=== PATIENT | female | born 1935 | race Caucasian/White ===

== ENCOUNTER → 2017-02-09 | Outpatient (CLI) | payer MEDICARE ==
--- NOTE | 2017-02-09 11:24 | REPMRS ---
Patient History The patient states she had a clinical breast exam in 03/2016. Patient is postmenopausal, has history of endometrial cancer at age 66, has history of colorectal cancer at age 55, and had first child at age 30. No known family history of cancer. Digital Woman Screen Mammo: February 09, 2017 - Exam #: [id number] Bilateral CC and MLO view(s) were taken. Technologist: Binta Winston, Technologist Prior study comparison: January 27, 2016, digital woman screen mammo performed at [facility] [employer] to [facility]. January 21, 2015, digital woman screen mammo performed at [facility] [employer] to [facility]. FINDINGS: There are scattered fibroglandular densities. There has been no change in the appearance of the mammogram from the prior studies. There is a mild amount of residual fibroglandular tissue which is fairly symmetric. There is no interval development of dominant mass, architectural distortion, or clustered microcalcification suggestive of malignancy. ASSESSMENT: BI-RADS/ACR category 1 mammogram. Negative. Recommendation Routine screening mammogram in 1 year (for women over age 40). This mammogram was interpreted with the aid of an FDA-approved computer-aided dectection system. Electronically Signed By: Kieran Ramirez MD 02/09/17 [id number]
--- NOTE | 2017-02-10 10:30 | DEXA ---
AP SPINE L1 - L4 1.140 -0.3 1.5 LT FEMUR TOTAL 0.837 -1.4 0.8 RT FEMUR TOTAL 0.881 -1.0 1.1 TOTAL BODY TOTAL OTHER DUAL FEMUR FRAX* ASSESSMENT Risk factors: Not performed. 10 year probability of fracture Major osteoporotic fracture % Hip fracture % COMMENTS: Normal bone densitometry of the spine and hips. The increased density of the spine does represent a significant change. The decreased density of the left hip does represent a significant change. The increased density of the right hip does represent a significant change. The density of the spine has increased 2.2% since the initial exam on 1999. The spine density has increased 3.1% since the most recent exam on 03/25/2008. The density of the left hip has decreased 10.4% since the initial exam on 1999. The density of the left hip has decreased 2.3% since the most recent exam on . The density of the right hip has increased 1.8% since the initial exam on 1999. The density of the right hip has increased 7.8% since the most recent exam on . FOLLOW-UP: Recommendation for the next bone density exam: 5 years. RAMIREZ
== END ==
LOC: M WHC 09:46
PROVIDERS: ATTEND Family Medicine
DX: Z12.31 Encounter for screening mammogram for malignant neoplasm of breast (principal); M81.0 Age-related osteoporosis without current pathological fracture; Z85.038 Personal history of other malignant neoplasm of large intestine; Z85.42 Personal history of malignant neoplasm of other parts of uterus
CPT/HCPCS: 77080; G0202

== ENCOUNTER 2019-02-22 00:44 | Inpatient (IN) | payer MEDICARE ==
[~2019-02-22] VITALS: Ht 162.6 cm; Wt 57.4 kg
[2019-02-22 03:10] VITALS: BP 122/63
--- NOTE | 2019-02-22 03:13 | HPEPDOC ---
[facility] Medical History & Physical Date of Admission Feb 22, 2019 Date of Service: Feb 22, 2019 Primary Care Physician: NAHID BRITO M.D. Attending Physician: DANIELLA ÁLVAREZ MD History and Physical PRIMARY CARE PROVIDER: Nahid Brito ATTENDING: Dr. Daniella Álvarez CHIEF COMPLAINT: abdominal pain HISTORY OF PRESENT ILLNESS: Patient is a 83 year old female transferred from [facility] for small bowel obstruction. She states that around 1400 on 02/21, she began to experience constant mid-epigastric and left upper quadrant abdominal pain with nausea and bilious non-bloody emesis. She has a history of small bowel obstruction 4 years ago in [place] where her symptoms were exactly the same so she presented to the emergency department at [facility]. While she was there a CT scan of her abdomen showed "findings compatible with small bowel obstruction with bowel loops measuring up to 3.2 cm and a transition point in the right lower quadrant associated with a twisting/radiating mesentery compatible with a closedloop small bowel bowel obstruction". She also was found to have a white count of 13.8. She was given IV Zofran, fluids, ibuprofen, and was started on antibiotics. They called Dr. Álvarez for transfer to [facility] for possible surgical intervention. Presently, the patient's abdominal pain is well- controlled with a single 800 mg ibuprofen and she is not having any nausea. Her last bowel movement was at 0830 on 02/21, her last meal was about noon on 02/21, and she states she was able to pass flatus around 0430 shortly after she arrived at [facility]. PAST MEDICAL HISTORY: Hypothyroidism Irregular heart beat History of colorectal cancer treated with radiation and partial colon resection (1990) History of uterine cancer treated with hysterectomy (2001) History of small bowel obstruction (2014) PAST SURGICAL HISTORY: partial colon resection (1990) Hysterectomy SOCIAL HISTORY: denies alcohol use, denies use of tobacco products, denies any marijuana, heroin, cocaine, or PCP use. No sick contacts. No recent travel/travel history. FAMILY HISTORY: Noncontributory ALLERGIES: Please see below. REVIEW OF SYSTEMS: GENERAL: Denies fevers, chills, recent unexpected weight change, night sweats, hemoptysis HEENT: Denies headache, dizziness, vision changes, hearing loss, sore throat CARDIOVASCULAR: Denies chest pain, palpitations, orthopnea RESPIRATORY: Denies shortness of breath, wheezing, cough GASTROINTESTINAL: denies constipation, diarrhea, bloody stool. Admits to nausea, vomiting, abdominal pain GENITOURINARY: Denies dysuria,urinary urgency, hematuria. MUSCULOSKELETAL: Denies muscle/joint pain, weakness, stiffness NEUROLOGICAL: Denies any numbness/tingling, focal weakness, or syncope HOME MEDICATIONS: Please see below. PHYSICAL EXAMINATION: Vitals: (see below) General: No acute distress, laying comfortably in bed. HEENT: Normocephalic, atraumatic. EOMI. No scleral icterus. Moist mucous membranes. No pharyngeal erythema or uvular deviation. Neck: No JVD, lymphadenopathy, or thyromegaly. Cardiac: RRR, Normal S1 and S2, No murmurs, gallops, rubs. Pulm: Clear to auscultation b/l. No wheezing, rhonchi Abd: Bowel Sounds present. Abdomen is soft, non-tender, non-distended. No gua rding, rebound tenderness, or rigidity. No hepatosplenomegaly. No masses or eccymosis. Ext: No edema or cyanosis Neuro: A&Ox3 CN 3-12 grossly intact. LABORATORY DATA: See below. IMAGING: CT abdomen and pelvis from [facility] Impression: 1. Findings compatible with small bowel obstruction with bowel loops measuring up to 3.2 cm. Transition point in the right lower quadrant associated with a twisting/radiating mesentery compatible with a closedloop small bowel obstruction. 2. No evidence of pneumatosis intestinalis, portal venous gas or free intraperitoneal air. 3. Trace ascites MICROBIOLOGY: Please see below. ASSESSMENT/PLAN: #. Small bowel obstruction - Patient is presently asymptomatic and pain is well controlled. Will continue to keep patient NPO and run gentle IV fluids. Patient has IV Toradol and Zofran for pain and nausea control. - Consulting general surgery for assessment of possible surgical intervention. #. Hypothyroidism - Continue home levothyroxine #. Irregular heartbeat - Continue metoprolol -DVT prophy: Teds and sequentials, holding heparin in case of surgery. Home Medications Scheduled Aspirin (Aspirin EC) 81 Mg Tablet.dr, 81 MG PO DAILY Levothyroxine Sodium (Synthroid) 88 Mcg Tablet, 88 MCG PO DAILY Metoprolol Succinate (Metoprolol Succinate) 25 Mg Tab.er.24h, 25 MG PO QPM TAKES AT DINNERTIME Multivitamins (Thera M Plus Tablet) 1 Each Tablet, 1 TAB PO DAILY Allergies Coded Allergies: No Known Allergies (Verified Allergy, Unknown, 02/22/19) A-FIB/CHADSVASC A-FIB History Current/History of A-Fib/PAF?: No GME ATTESTATION GME ATTESTATION My faculty preceptor for this patient encounter was physically present during the encounter and was fully available. All aspects of the patient interview, examination, medical decision making process, and medical care plan development were reviewed and approved by the faculty preceptor. The faculty preceptor is aware and concurs with the plan as stated in the body of this note and will attest to such by his/her cosignature. ATTENDING NOTE I personally performed a history and physical examination of the patient and discussed the management with the resident. I reviewed the resident's note and agree with the documented findings and plan of care. SIOMARA BEE DO Feb 22, 2019 02:49 DANIELLA ÁLVAREZ MD Feb 22, 2019 23:34
[2019-02-22] MEDS ORDERED: METO1TAB32 PO (03:55)
[2019-02-22] MEDS ORDERED: SYNT88TA2 PO (03:55)
[2019-02-22] MEDS ORDERED: VITMTA PO (03:55)
[2019-02-22] MEDS ORDERED: ASPI-161 PO (03:55)
[2019-02-22] MEDS ORDERED: KETOROLAC 30 MG/ML VIAL (J1885) IV PRN (04:00)
[2019-02-22] MEDS: NS 1,000 ML IV SCH ×2 (05:05→14:25)
[2019-02-22 06:00] VITALS: BP 113/58
[2019-02-22 06:14] LABS: HEMATOCRIT 39.8 % (36.0-47.0); HEMOGLOBIN 13.3 g/dl (12.0-15.5); MEAN CORPUSCULAR HEMOGLOBIN 31.1 pg (27.0-33.0); MEAN CORPUSCULAR HGB CONC 33.4 g/dl (32.0-36.5); MEAN CORPUSCULAR VOLUME 93.2 fl (80.0-96.0); PLATELET COUNT, AUTOMATED 193 10^3/uL (150-450); RED BLOOD COUNT 4.27 10^6/uL (4.00-5.40)
[2019-02-22] MEDS: LEVOTHYROXINE 88MCG TABLET (0.088 MG) PO SCH (06:35)
[2019-02-22] MEDS: ONDANSETRON 4MG/2ML VIAL (J2405) IV SCH ×3 (06:40→18:03)
[2019-02-22 06:41] LABS: BLOOD UREA NITROGEN 14 MG/DL (7-18); CALCIUM LEVEL 8.2 MG/DL (8.8-10.2); CARBON DIOXIDE LEVEL 27 MEQ/L (21-32); CHLORIDE LEVEL 109 MEQ/L (98-107); CREATININE FOR GFR 0.55 MG/DL (0.55-1.30); GLOMERULAR FILTRATION RATE > 60.0 (>32); GLUCOSE, FASTING 96 MG/DL (70-100); POTASSIUM SERUM 3.8 MEQ/L (3.5-5.1); SODIUM LEVEL 142 MEQ/L (136-145)
--- NOTE | 2019-02-22 12:01 | CR ---
DATE OF CONSULTATION: 02/22/2019 The patient is an 83-year-old female who developed abdominal pain, nausea and vomiting yesterday with abdominal distension. She has had "slow bowels" as described by Dr. Mcarthur in the past and had seen him a couple of weeks ago concerning some lower gastrointestinal (GI) issues. Essentially presents with acute onset of some abdominal discomfort, distension and nausea, vomiting. CT scan revealed a partial bowel obstruction versus ileus and was transferred here for additional treatment. She has been passing gas and feeling less nauseated since her transfer and has not had any bowel movements but had no fevers or chills and overall is hungry. PAST MEDICAL HISTORY: Her past medical history is significant for history of uterine cancer, status post hysterectomy, history of sigmoid colon resection. Medications include multivitamins and aspirin. She does have a history of hypothyroidism. History of colon cancer and history of gynecological ([employer]) cancer. PHYSICAL EXAMINATION: Physical exam reveals an 83-year-old female who looks stated age. HEENT is unremarkable. NECK: Supple without adenopathy. LUNGS: Clear to auscultation without crackles, wheezes or rhonchi. HEART: Heart is regular rhythm without murmur. ABDOMEN: Abdomen is softly distended but actually much better than it was earlier as evident on her CT scan and overall she states that her belly is "back to normal" at this time. EXTREMITIES: Warm, well-perfused. IMPRESSION AND PLAN: The patient has evidence of either an ileus or partial obstruction that has resolved and will start her on a clear liquid diet. If she does well with this time, I would recommend progressing her diet as tolerated. I anticipate if she continues to do well, she could be discharged to home tomorrow. I would recommend however that she follow up with Dr. Mcarthur in a few weeks for possible repeat endoscopy/colonoscopy mostly because, when I look at the CT scan, that seems as though the colon distal to the anastomosis is decompressed/may be a very narrow where as proximal, at the level of the anastomosis is where the large bowel seems quite distended and air-filled. This could be an issue where she might have a small anastomotic stricture that may need balloon dilatation. I will defer that assessment/workup to him.
[2019-02-22 14:00] VITALS: BP 112/68
[2019-02-22] MEDS ORDERED: METOPROLOL SUCC *XL* 25MG TAB (TopROL *XL*) PO SCH (18:00)
[2019-02-22 18:03] VITALS: BP 138/74
--- NOTE | 2019-02-22 18:59 | IPNPDOC ---
Date Seen The patient was seen on 02/22/19. Progress Note SUBJECTIVE: Patient appeared comfortable in bed. Denies any complaints. Does not note any significant pain at this time. Afebrile overnight. Noted to pass gas. OBJECTIVE PHYSICAL EXAMINATION: VITAL SIGNS: Please see below. General: No acute distress, Alert Eyes: Normal sclera, EOMI, MARTIN HENT: Atraumatic, neck supple, moist mucous membranes Cardiovascular: Normal rate, normal rhythm. No murmurs appreciated. Pulmonary: Clear to auscultation b/l, no wheezing GI: Soft, nontender, nondistended Skin: Warm and dry Neuro: CN grossly intact. No focal deficits. Strengths equal b/l. Psych: oriented x 3 LABORATORY DATA, IMAGING STUDIES, MICROBIOLOGY: Please see below. DVT prophylaxis ordered?: SCD ASSESSMENT AND PLAN: 1.Ileus - Pain had resolved. Pain is passing gas, no clinical evidence of complete obstruction. - Surgery following. - Started on clear liquid diet, plan to advance as tolerated. - Pain control. - Recommended f/u with Dr. Mcarthur post discharge for possible EGD/Colon oscopy. 2. Hypothyroidism - resume home med. 3. Irregular heart beat? - c/w metoprolol VS, I&O, 24H, Fishbone Vital Signs/I&O Vital Signs Date Time Temp Pulse Resp B/P (MAP) Pulse Ox O2 Delivery O2 Flow Rate FiO2 02/22/19 18:03 84 138/74 02/22/19 14:00 98.3 18 93 I&O- Last 24 Hours up to 6 AM 02/22/19 06:00 Intake Total 0 ml Output Total 375 ml Balance -375 ml Laboratory Data 24H LABS Laboratory Tests 2 02/22/19 05:27: Nucleated Red Blood Cells % (auto) 0.0, Anion Gap 6L, Glomerular Filtration Rate > 60.0, Blood Urea Nitrogen 14, Creatinine 0.55, Sodium Level 142, Potassium Level 3.8, Chloride Level 109H, Carbon Dioxide Level 27, Calcium Level 8.2L CBC/BMP Laboratory Tests 02/22/19 05:27 Red Blood Count 4.27, Mean Corpuscular Volume 93.2, Mean Corpuscular Hemoglobin 31.1, Mean Corpuscular Hemoglobin Concent 33.4, Red Cell Distribution Width 12.7, Calcium Level 8.2 L CELINA AMIN MD Feb 22, 2019 18:59
[2019-02-22 22:00] VITALS: BP 134/72
[2019-02-23] MEDS: NS 1,000 ML IV SCH (00:39)
[2019-02-23] MEDS: LEVOTHYROXINE 88MCG TABLET (0.088 MG) PO SCH (05:45)
[2019-02-23] MEDS: ONDANSETRON 4MG/2ML VIAL (J2405) IV SCH ×3 (05:45→11:58)
[2019-02-23 06:00] VITALS: BP 130/74
[2019-02-23 06:10] LABS: HEMATOCRIT 42.4 % (36.0-47.0); HEMOGLOBIN 13.6 g/dl (12.0-15.5); MEAN CORPUSCULAR HEMOGLOBIN 31.4 pg (27.0-33.0); MEAN CORPUSCULAR HGB CONC 32.1 g/dl (32.0-36.5); MEAN CORPUSCULAR VOLUME 97.9 fl (80.0-96.0); PLATELET COUNT, AUTOMATED 167 10^3/uL (150-450); RED BLOOD COUNT 4.33 10^6/uL (4.00-5.40); WHITE BLOOD COUNT 7.1 10^3/uL (4.0-10.0)
[2019-02-23 06:44] LABS: BLOOD UREA NITROGEN 10 MG/DL (7-18); CARBON DIOXIDE LEVEL 28 MEQ/L (21-32); CHLORIDE LEVEL 113 MEQ/L (98-107); GLOMERULAR FILTRATION RATE > 60.0 (>32); GLUCOSE, FASTING 85 MG/DL (70-100); SODIUM LEVEL 145 MEQ/L (136-145)
[2019-02-23 10:00] VITALS: BP 137/74
--- NOTE | 2019-02-23 13:21 | IPN ---
DATE: 02/23/2019 The patient overall has been doing well overnight. No complaints. Has had more flatus, has been tolerating clear liquid diet without any nausea, without any vomiting and overall feels back to normal. She has been afebrile. Intake and output show good urine output. On her physical exam abdomen is soft, nondistended, nontender. No guarding. No rebound. No peritoneal signs are appreciated. IMPRESSION AND PLAN: Patient has resolved her partial small bowel obstruction/ileus and at this point my recommendation is that she be discharged home with followup with her smoke inspector in 2-3 weeks for reevaluation and recommendations. Obviously the question at this time concerning whether this was some sort of inflammatory process unrelated to the previous surgery that she has had, whether this is a stricture at the colonic anastomosis and whether there is some sort of element of distal colitis as another possibility, in any case with her with her ongoing issues she understands that should needs to followup with Dr. Mcarthur a couple weeks and to progress her diet slowly and to contact our office or return of the hospital if she is having increasing pain, nausea, vomiting, etc.
[2019-02-23 14:00] VITALS: BP 136/70
--- NOTE | 2019-02-23 16:03 | DS.PDOC ---
Discharge Summary General Date of Admission Feb 22, 2019 at 03:08 Date of Discharge 02/23/19 Discharge Summary PROCEDURES PERFORMED DURING STAY: [None]. ADMITTING DIAGNOSES: 1. Small bowel obstruction 2. Hypothyroidism 3. Irregular heart beat DISCHARGE DIAGNOSES: 1. Small bowel obstruction 2. Hypothyroidism 3. Irregular heart beat COMPLICATIONS/CHIEF COMPLAINT: Small Bowel Obstruction. HISTORY OF PRESENT ILLNESS: " Patient is a 83 year old female transferred from [facility] for small mary jo l obstruction. She states that around 1400 on 02/21, she began to experience constant mid-epigastric and left upper quadrant abdominal pain with nausea and bilious non-bloody emesis. She has a history of small bowel obstruction 4 years ago in [place] where her symptoms were exactly the same so she presented to the emergency department at [facility]. While she was there a CT scan of her abdomen showed "findings compatible with small bowel obstruction with bowel loops measuring up to 3.2 cm and a transition point in the right lower quadrant associated with a twisting/radiating mesentery compatible with a closedloop small bowel bowel obstruction". She also was found to have a white count of 13.8. She was given IV Zofran, fluids, ibuprofen, and was started on antibiotics. They called Dr. Álvarez for transfer to [facility] for possible surgical intervention. Presently, the patient's abdominal pain is well-controlled with a single 800 mg ibuprofen and she is not having any nausea. Her last bowel movement was at 0830 on 02/21, her last meal was about noon on 02/21, and she states she was able to pass flatus around 0430 shortly after she arrived at [facility]. " HOSPITAL COURSE: Patient was seen and observed in the hospital for obstruction however does not exhibit any clinical evidence of a SBO. Denies any abdominal pain, nausea, vomiting. Abdominal exam are benign and patient has been passing gas, likely had been resolved. Surgery has been following. Recommend following with GI several weeks post discharge as image findings may be suggestive of stricture at colonic anastamosis, distal colitis, etc. May need repeat Endoscopy/Colonoscopy as outpatient if symptoms recur. Will discharge patient to f/u with PMD and GI. May also schedule appt with surgery should pain recurs post discharge. DISCHARGE MEDICATIONS: Please see below. ALLERGIES: Please see below. PHYSICAL EXAMINATION ON DISCHARGE: VITAL SIGNS: Please see below. General: No acute distress, Alert Eyes: Normal sclera, EOMI, MARTIN HENT: Atraumatic, neck supple, moist mucous membranes Cardiovascular: Normal rate, normal rhythm. No murmurs appreciated. Pulmonary: Clear to auscultation b/l, no wheezing GI: Soft, nontender, nondistended Skin: Warm and dry Neuro: CN grossly intact. No focal deficits. Strengths equal b/l. Psych: oriented x 3 LABORATORY DATA: Please see below. ACTIVITY: [As tolerated]. DIET: Regular DISCHARGE PLAN: f/u PMD and GI DISPOSITION: Home. DISCHARGE INSTRUCTIONS: f/u PMD and GI ITEMS TO FOLLOWUP ON ON OUTPATIENT: None DISCHARGE CONDITION: [Stable]. TIME SPENT ON DISCHARGE: 32 minutes. Vital Signs/I&Os Vital Signs Date Time Temp Pulse Resp B/P (MAP) Pulse Ox O2 Delivery O2 Flow Rate FiO2 02/23/19 14:00 98.0 77 16 136/70 (92) 98 I&O- Last 24 Hours up to 6 AM 02/23/19 06:00 Intake Total 1950 ml Output Total 1850 ml Balance 100 ml Laboratory Data Labs 24H Laboratory Tests 2 02/23/19 05:58: Nucleated Red Blood Cells % (auto) 0.0, Anion Gap 4L, Glomerular Filtration Rate > 60.0, Blood Urea Nitrogen 10, Creatinine 0.60, Sodium Level 145, Potassium Level 4.0, Chloride Level 113H, Carbon Dioxide Level 28, Calcium Level 8.0L, Magnesium Level 2.0 CBC/BMP Laboratory Tests 02/23/19 05:58 Red Blood Count 4.33, Mean Corpuscular Volume 97.9 H, Mean Corpuscular Hemoglobin 31.4, Mean Corpuscular Hemoglobin Concent 32.1, Red Cell Distribution Width 12.7, Calcium Level 8.0 L Discharge Medications Scheduled Aspirin (Aspirin EC) 81 Mg Tablet.dr, 81 MG PO DAILY, (Reported) Levothyroxine Sodium (Synthroid) 88 Mcg Tablet, 88 MCG PO DAILY, (Reported) Metoprolol Succinate (Metoprolol Succinate) 25 Mg Tab.er.24h, 25 MG PO QPM, (Reported) TAKES AT DINNERTIME Multivitamins (Thera M Plus Tablet) 1 Each Tablet, 1 TAB PO DAILY, (Reported) Allergies Coded Allergies: No Known Allergies (Verified Allergy, Unknown, 02/22/19) CELINA AMIN MD Feb 23, 2019 16:03
== END 2019-02-23 17:28 | disposition home or self-care (01) | DRG 390 ==
LOC: M MSPAV 03:08
PROVIDERS: ADMIT Internal Medicine Nephrology; ATTEND Student in an Organized Health Care Education/Training Program
DX: K56.600 Partial intestinal obstruction, unspecified as to cause (principal); E03.9 Hypothyroidism, unspecified; I49.9 Cardiac arrhythmia, unspecified; Z85.038 Personal history of other malignant neoplasm of large intestine; Z90.49 Acquired absence of other specified parts of digestive tract; Z92.3 Personal history of irradiation; Z85.42 Personal history of malignant neoplasm of other parts of uterus; Z90.710 Acquired absence of both cervix and uterus; Z79.82 Long term (current) use of aspirin; Z79.899 Other long term (current) drug therapy

== ENCOUNTER 2019-03-16 10:34 | Day surgery (SDC) | payer MEDICARE ==
[~2019-03-16] VITALS: Ht 162.6 cm; Wt 54.0 kg
[~2019-03-16 10:34] MED LIST: ASPI-161 PO; METO1TAB32 PO; NS 1,000 ML IV ONE; SYNT88TA2 PO; VITMTA PO
[2019-03-16] MEDS ORDERED: LIDOCAINE 2% INJ 100 MG/5 ML SDV (FOR ANES.) As Ordered ONE (12:19)
[2019-03-16] MEDS ORDERED: PROPOFOL 200 MG/20 ML VIAL As Ordered ONE ×2 (12:19→13:09)
--- NOTE | 2019-03-16 13:33 | ROOR ---
Patient Name: Xiomara Mercado Procedure Date: 03/16/2019 1:09 PM Date of : 1935 Age: 83 Room: [facility] Gender: Female Note Status: Finalized Procedure: Total Colonoscopy to Cecum + Cold Snare Polypectomy + Hemoclips Indications: Lower abdominal pain, Abnormal CT of the GI tract Providers: Jay Mcarthur MD Referring MD: Nahid Correa MD Requesting Provider: Medicines: Monitored Anesthesia Care Complications: No immediate complications. Procedure: Pre-Anesthesia Assessment: - The heart rate, respiratory rate, oxygen saturations, blood pressure, adequacy of pulmonary ventilation, and response to care were monitored throughout the procedure. The Colonoscope was introduced through the anus and advanced to the cecum, identified by appendiceal orifice and ileocecal valve. The colonoscopy was performed without difficulty. The patient tolerated the procedure well. The quality of the bowel preparation was good. Findings: The perianal and digital rectal examinations were normal. Non-bleeding internal hemorrhoids were found during retroflexion. The hemorrhoids were small and Grade I (internal hemorrhoids that do not prolapse). There was evidence of a prior end-to-end colo-colonic anastomosis at 30 cm proximal to the anus. This was patent and was characterized by healthy appearing mucosa. A medium polyp was found in the ascending colon. The polyp was sessile. The polyp was removed with a cold snare. Resection and retrieval were complete. To prevent bleeding after the polypectomy, one hemostatic clip was successfully placed (MR conditional). There was no bleeding at the end of the procedure. A small polyp was found in the rectum. The polyp was sessile. The polyp was removed with a cold snare. Resection and retrieval were complete. To prevent bleeding after the polypectomy, one hemostatic clip was successfully placed (MR conditional). There was no bleeding at the end of the procedure. The exam was otherwise without abnormality on direct and retroflexion views. Multiple large localized angioectasias were found in the rectum. Impression: - Non-bleeding internal hemorrhoids. - Patent end-to-end colo-colonic anastomosis, characterized by healthy appearing mucosa. - One medium polyp in the ascending colon, removed with a cold snare. Resected and retrieved. Clip (MR conditional) was placed. - One small polyp in the rectum, removed with a cold snare. Resected and retrieved. Clip (MR conditional) was placed. - The examination was otherwise normal on direct and retroflexion views. - Multiple colonic angioectasias. - The exam was otherwise normal to the cecum. - Radiation proctitis. Recommendation: - Patient has a contact number available for emergencies. The signs and symptoms of potential delayed complications were discussed with the patient. Return to normal activities tomorrow. Written discharge instructions were provided to the patient. - Resume previous diet. - Continue present medications. - Await pathology results. - Telephone GI clinic for pathology results in 1 week. - Repeat colonoscopy for symptoms only. - Return to referring physician. - The findings and recommendations were discussed with the patient's family. Jay Mcarthur MD Jay Mcarthur MD 03/16/2019 1:33:29 PM Electronically signed by Jay Mcarthur MD Number of Addenda: 0 Note Initiated On: 03/16/2019 1:09 PM Estimated Blood Loss: Estimated blood loss: none.
[2019-03-16 14:00] VITALS: BP 153/84
== END 2019-03-16 14:21 | disposition home or self-care (01) ==
LOC: M OPP 10:34
PROVIDERS: ATTEND Internal Medicine Gastroenterology
DX: K64.0 First degree hemorrhoids (principal); Z98.0 Intestinal bypass and anastomosis status; D12.2 Benign neoplasm of ascending colon; K62.1 Rectal polyp; K55.20 Angiodysplasia of colon without hemorrhage; K62.7 Radiation proctitis; R10.30 Lower abdominal pain, unspecified; R93.3 Abnormal findings on diagnostic imaging of other parts of digestive tract; Z79.82 Long term (current) use of aspirin; Z79.899 Other long term (current) drug therapy